=== PATIENT | male | born 1935 | race Caucasian/White ===

== ENCOUNTER → 2016-10-22 | Outpatient (CLI) | payer MEDICARE, OTHER ==
--- NOTE | 2016-10-22 17:00 | DI ---
LOCATION OF DICTATION: [facility] EXAM: CHEST, PA LATERAL HISTORY: ITS.REASON: Z01.818 PRE-OP EXAM for shoulder surgery on October 30. COMPARISON: No prior studies available for comparison. FINDINGS: Postsurgical changes of median sternotomy and CABG. The heart is mildly enlarged. Central pulmonary vasculature is within normal limits. There are no consolidating opacities or pleural effusions. There is no pneumothorax. IMPRESSION: No acute cardiopulmonary abnormality is identified. .
== END ==
LOC: IMA 16:40
PROVIDERS: ATTEND Family Medicine
DX: Z01.818 Encounter for other preprocedural examination (principal)

== ENCOUNTER 2016-10-30 05:27 | Day surgery (SDC) | payer MEDICARE, OTHER ==
[2016-10-30] VITALS (17 sets, daily range): BP systolic 129–192; BP diastolic 61–84; PULSE 58–74; RESP 11–24; TEMP 97.4–97.8; O2SAT 94–96; Ht 185.4 cm; Wt 84.9 kg
[~2016-10-30] VITALS: Ht 185.4 cm; Wt 84.9 kg
[~2016-10-30 05:27] MED LIST: ASPI-557 PO; ATOR20TA59 PO; FISH1CAP2 PO; FURO20TA4 PO; GLIM2TAB3 PO; LEVO50TA11 PO; OMEP20CA10 PO
--- OUTSIDE RECORDS SUMMARY | 2016-10-30 05:33 | XMS REPORT | Continuity of Care Document ---
Author Author [facility] Organization [facility] Address Unknown Phone Unavailable Care Team Providers Care Gerentological Physiotherapist Name Role Phone NiltonKatie cohen Primary Care Physician [phone] Source Comments Some departments are not documenting in the electronic medical record. If you do not see the information that you expected, contact Release of Information in the Health Information Management department at [phone] for further assistance in locating additional records.[facility] Active Allergies and Adverse Reactions Allergen Noted Date Severity Reactions Comments Bactrim 02/15/2014 UNKNOWN Metformin 02/15/2014 UNKNOWN Pcn 02/15/2014 UNKNOWN Current Medications Prescription Sig. Disp. Refills Start End Date Status Date ERGOCALCIFEROL (VITAMIN Take 1,000 mg by mouth Active D2) (VITAMIN D PO) daily. Fish Oil-DHA-EPA Take by mouth daily. Active 1,200-144-216 mg cap aspirin EC 81 mg tablet Take 81 mg by mouth Active daily. PANTOPRAZOLE SODIUM Take by mouth daily. Active (PROTONIX PO) atorvastatin (LIPITOR) 10 Take 10 mg by mouth Active mg tablet daily. glimepiride (AMARYL) 4 mg Take 4 mg by mouth daily Active tablet with breakfast. gabapentin (NEURONTIN) Take 300 mg by mouth Active 300 mg capsule twice daily. metoprolol XL (TOPROL XL) Take 25 mg by mouth Active 25 mg tablet daily. furosemide (LASIX) 20 mg Take 20 mg by mouth Active tablet daily. other medication Take 1 Dose by mouth Active daily. 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) 05/16/2014 Secondary malignant neoplasm of liver 05/16/2014 Social History Tobacco Use Types Packs/Day Years Used Date Never Smoker Smokeless Tobacco: Never Used Alcohol Use Drinks/Week oz/Week Comments No 0 Standard 0.0 drinks or equivalent Last Filed Vital Signs Vital Sign Reading Time Taken Blood Pressure 163/76 05/06/2016 8:52 AM CDT Pulse 59 05/06/2016 8:52 AM CDT Temperature 36.1 C (97 F) 05/06/2016 8:52 AM CDT Respiratory Rate 18 05/06/2016 8:52 AM CDT Height 1.822 m (5' 11.75") 05/06/2016 8:52 AM CDT Weight 87.272 kg (192 lb 6.4 oz) 05/06/2016 8:52 AM CDT Body Mass Index 26.29 05/06/2016 8:52 AM CDT Oxygen Saturation 96% 05/06/2016 8:52 AM CDT Plan of Care Date Type Specialty Providers Description 11/11/2016 Appointment Oncology 11/11/2016 Appointment Oncology Cleve Banks MD [address] [place] [address] [phone] (Fax) Health Maintenance Due Date Last Done Comments Physical (Comprehensive) 1942 Exam Pertussis Vaccine 1946 Tetanus Vaccine 01/12/1952 Shingles Vaccine 1995 Prevnar/Pneumovax (#1) 01/12/2000 Influenza Vaccine 04/11/2016 Results from Last 3 Months Not on file
[2016-10-30 06:41] LABS: ANION GAP 11 MEQ/L (5-15); BUN/CREATININE RATIO 26 RATIO (6-26); CALCIUM 9.3 MG/DL (8.4-10.2); CHLORIDE 107 MEQ/L (98-107); CO2 - CARBON DIOXIDE 27 MEQ/L (22-30); CREATININE 0.7 MG/DL (0.8-1.5); GLOMERULAR FILTRATION RATE 108; GLUCOSE 148 MG/DL (75-110); POTASSIUM 4.2 MEQ/L (3.6-5); SODIUM 145 MEQ/L (134-144)
[2016-10-30] MEDS ORDERED: PROPOFOL 200mg 20 ML IV ONE ×2 (06:45→07:11)
[2016-10-30] MEDS ORDERED: ROCURONIUM 50mg/5ml INJECTION IV ONE ×2 (06:45→07:11)
[2016-10-30] MEDS ORDERED: ROPIVACAINE 0.5% (5mg/ml) 30ml INJ ONE ×2 (06:48→07:11)
[2016-10-30] MEDS ORDERED: EPINEPHRINE 1mg/ml TOPICAL SOLN 30ml ONE (06:49)
--- NOTE | 2016-10-30 06:51 | ANESPREOP ---
Anesthesia Record Date and Time DATE: 10/30/16 TIME: 06:45 Pre-Op Diagnosis Rt shoulder pain, rotator cuff tear Proposed Surgical Procedure R. SHOULDER ARTHROSCOPY NPO since: > [place] Allergies: Coded Allergies: Penicillins (Verified Allergy, Unknown, 10/30/16) sulfamethoxazole (Verified Adverse Reaction, Severe, LIVER FAILURE, ) trimethoprim (Verified Adverse Reaction, Severe, LIVER FAILURE, 10/30/16) Ht/Wt/BMI Height: 6 ' 1.00 " Weight: 84.900 kg BMI: 24.7 kg/m2 Vital Signs Date Time Temp Pulse Resp B/P Pulse Ox O2 Delivery O2 Flow Rate FiO2 10/30/16 06:15 170/75 10/30/16 05:45 97.8 59 16 96 Room Air Medications Inpatient Medications Current Medications Medications (Trade) Dose Ordered Sig/Pricila Start Time Stop Time Status Last Admin Dose Admin Lactated Ringer's (Lactated Ringers) 1,000 ml @ 50 mls/hr Q20H 10/30/16 07:00 10/30/16 06:18 50 MLS/HR Aspirin (Aspir 81) 81 Mg Tablet.dr, 1 TAB PO DAILY, (Reported) Last Taken: on 10/22/16 Atorvastatin Calcium (Atorvastatin Calcium) 20 Mg Tablet, 1 TAB PO HS, (Reported) Last Taken: on 10/29/16 0800 Furosemide (Furosemide) 20 Mg Tablet, 1 TAB PO DAILY, (Reported) Last Taken: on 10/29/16 0800 Glimepiride (Glimepiride) 2 Mg Tablet, 1 TAB PO BID, (Reported) Last Taken: on 10/29/16 0800 Levothyroxine Sodium (Levothyroxine Sodium) 50 Mcg Tablet, 50 MCG PO ACB, (Reported) Once daily before breakfast. 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 smoked today?: No Substance Use Type: does not use Alcohol Intake: none Past Surgical History Orthopedic Surgeries: Abdominal Surgeries: Yes - GALLBLADDER Genitourinary Surgeries: Cardiac Surgeries: Yes - BIPASS,STENT 2010 Endocrine Surgeries: Reproductive Surgeries: Neurological Surgeries: Ear Surgeries: Nose Surgeries: Throat Surgeries: Other Surgeries: Yes - C SCOPE Anesthesia Adverse Reactions: FOUND none Family Hx of Anesthesia Advers: none Pertinent Findings Laboratory Tests 10/30/16 06:19 Physical Exam Respiratory: Lungs clear Cardiovascular: FOUND Regular rate, rhythm, FOUND No murmur Airway Assessment Mallampati Score: III TMD: 3 Fingerbreadths Neck Extension: Good Teeth: Chipped Teeth/Crowns Overall Assessment: May Be Diff Intubation ASA: 3 Plan Anesthesia Plan: GETA Peripheral Nerve Block: Interscalene Block - RT Discussion Discussed risks/options/alternatives of anesthesia and questions answered. Patient consents. Nursing pain assessment noted. Present: Spouse Attestation Statement Prior to the delivery of any anesthetic medication, I examined the patient, developed the plan, obtained the patient's consent and discussed the risk and benefits of the procedure with the patient/guardian. FRANCY PIMENTEL BONDING MACHINE OPERATOR STUDENT Oct 30, 2016 06:48
[2016-10-30] MEDS ORDERED: LR 1,000 ML IV SCH (07:00)
[2016-10-30] MEDS ORDERED: MIDAZOLAM 2mg/2ml INJECTION IV ONE (07:00)
[2016-10-30] MEDS ORDERED: LIDOCAINE 1% (10mg/ml) 2ml SDV INJ ONE (07:00)
[2016-10-30] MEDS ORDERED: EPHEDRINE SULFATE 50mg/ml INJECTION ONE (07:11)
[2016-10-30] MEDS ORDERED: PHENYLEPHRINE 10mg/ml INJECTION ONE (07:11)
[2016-10-30] MEDS ORDERED: FENTANYL 250mcg/5ml INJECTION ONE (07:12)
[2016-10-30] MEDS ORDERED: SALINE FLUSH 10ml SYRINGE ONE (07:14)
[2016-10-30] MEDS ORDERED: CLINDAMYCIN 600mg IVPB 50 ML IV ONE (08:00)
--- NOTE | 2016-10-30 08:26 | ANESPD ---
Peripheral Nerve Blockade Physician: Ghanshyam Jaimes MD Date: 10/30/16 Surgical Procedure: right shoulder arthroscopy Discussion Discussed risks/options/alternatives of anesthesia and questions answered. Patient consents. Nursing pain assessment noted. Block Start: 06:57 Block Stop: 07:07 Block Employed: Intrascal[employer] Indication: post-operative pain Approach: right side confirmed Position: supine Patient: Consent, risks/benefits discussed, Informed, post block act. discussed Monitors: EKG, SpO2, NIBP IV Sedation: Yes Sedation: sedate w/meaningful contact Midazolam (mg): 2 Initial Vital Signs First Documented Vital Signs Date Time Temp Pulse Resp B/P Pulse Ox O2 Delivery O2 Flow Rate FiO2 10/30/16 05:45 97.8 59 16 187/84 96 Room Air Post Vital Signs Vital Signs Date Time Temp Pulse Resp B/P Pulse Ox O2 Delivery O2 Flow Rate FiO2 10/30/16 07:10 58 13 145/70 95 Room Air 10/30/16 05:45 97.8 Initial Pain Score: 0 Post Block Score: 0 Prep: chlorhexadine/ETOH Ultrasound Used?: Yes Injectate Ropivacaine (%): 0.5 Ropivacaine (mL): 30 Was Epi 1:200,000 Used?: No Injection Injection made incrementally with constant monitoring and aspiration every [5] ml. AVE PIMENTEL CRNA Oct 30, 2016 08:26
[2016-10-30] MEDS ORDERED: HYDROMORPHONE 2mg/ml INJECTION IV PRN (08:30)
[2016-10-30] MEDS ORDERED: ONDANSETRON 4mg/2ml INJECTION IV PRN (08:30)
[2016-10-30] MEDS ORDERED: SUGAMMADEX 200 MG/2 ML INJECTION IV ONE (09:06)
[2016-10-30] MEDS ORDERED: OXYC1TAB8 PO (09:22)
[2016-10-30] MEDS ORDERED: ONDA4TAB4 PO (09:22)
--- NOTE | 2016-10-30 09:28 | PDPROCED ---
Immediate Operative Note DATE: 10/30/16 TIME: 09:23 Preop Diagnosis: RIGHT SHOULDER TRAUMATIC RCT, AC DJD, impingement Postop Diagnosis: Right shoulder traumatic RCT, AC DJD, impingement, degenerative labral tear Surgical Procedures: R Arthroscopic RCR (SAD, DCE, labral debridement) Surgeon: Theodore Panel Coverer: LOLY Weston Anesthesia: General (plus regional block) Complications: none Estimated Blood Loss see anesthesia TACO GOOD Oct 30, 2016 09:27
--- NOTE | 2016-10-30 10:18 | ANESPO ---
Post-Op Note Date 10/30/16 Time: 10:17 Status Pt Participated in Evaluation: Pt participated in person Vital Signs Date Time Temp Pulse Resp B/P Pulse Ox O2 Delivery O2 Flow Rate FiO2 10/30/16 09:56 97.6 66 24 140/67 96 Room Air 10/30/16 09:35 6.00 Respiratory Function: Airway patent Cardiovascular Function: Regular pulse Telemetry Pattern: SR Mental Status: Alert/oriented Pain Level Intensity: 0 Hydration: Taking po fluids Complications during Recovery None apparent Follow-Up Instructions Instructions Per Surgeon SHONDA FUNEZ MEDICAL RECEPTIONIST Oct 30, 2016 10:18
--- NOTE | 2016-10-30 14:22 | OPNOTEF ---
DATE OF PROCEDURE 10/30/2016 PREOPERATIVE DIAGNOSES 1. Right shoulder rotator cuff tear. 2. Right shoulder AC joint osteoarthritis. 3. Right shoulder rotator cuff impingement with large subacromial spur. POSTOPERATIVE DIAGNOSES 1. Right shoulder rotator cuff tear. 2. Right shoulder AC joint osteoarthritis. 3. Right shoulder rotator cuff impingement with large subacromial spur. PROCEDURE 1. Right shoulder arthroscopic rotator cuff repair. 2. Right shoulder arthroscopic distal clavicle excision. 3. Right shoulder arthroscopic subacromial decompression. SURGEON Ghanshyam Jaimes MD LOW EMISSION AUTOMOBILE DESIGNER Cleve Cano PA-C ANESTHESIA General with regional block. FLUIDS Please refer to Anesthesia chart. EBL Minimal. TOURNIQUET None used. COMPLICATIONS None. CONDITION Stable to recovery room. IMPLANTS [employer] 5.0 mm TWINFIX anchor x 2. DESCRIPTION OF PROCEDURE The patient was identified in the preoperative holding area. The operative extremity was identified and appropriately marked. Risks, benefits, alternatives and potential complications were discussed and informed consent was obtained. The patient was taken to the operating theatre, placed supine on the operating table. Appropriate cardiorespiratory monitors were applied. General anesthesia was induced. A block had been placed in preoperative holding. The patient was positioned in a seated beach chair position with all bony prominences well padded. Head and neck were secured in a safe position. Right upper extremity was sterilely prepped and draped in the usual fashion. Surgical time-out was performed, confirmed with myself, the generator operator straight bevel gear and circulating nurse. Preoperative antibiotics were given. Examination under anesthesia revealed full passive range of motion of the right shoulder. No instability. Standard posterior arthroscopic portal was established. The arthroscope was inserted and the glenohumeral joint was insufflated with saline. Needle localization was utilized to establish an anterior portal in the rotator interval and diagnostic examination ensued. Glenohumeral articular cartilage was fairly well maintained. Only minimal degenerative change present. Anterior, inferior and posterior erich were intact. There was mild fraying of the superior labrum which was gently debrided with a suction shaver. Long head biceps tendon anchor was intact. Biceps tendon was intact in its intraarticular and extraarticular portions. The subscapularis tendon was intact. There was a full-thickness tear of the supraspinatus with evidence of delamination. The undersurface of the tendon was debrided with a shaver as was the medial border of the footprint. The posterior aspect of the cuff was otherwise intact. The arthroscope was then withdrawn and placed in the subacromial space. The patient had large spurring of the anterior and anterolateral aspects of the acromion. This even made it difficult to establish a lateral portal site secondary to the lateral concavity. A shaver was introduced after establishment of a lateral portal and bursectomy was performed. The patient's tissue was quite friable and bled quite easily making visualization difficult at times. We had to adjust pump pressures and outflow progressively throughout the case to maintain adequate field of view. Once an adequate bursectomy was performed, the CA ligament was notably frayed again with these large anterolateral subacromial spurs. To aid in instrumentation through the portals, a 5.5 bur was utilized to perform an acromioplasty primarily of the anterolateral aspect of the acromion to afford a better approach for instrumentation. At this point attention was turned towards evaluation of the rotator cuff. There was a complex delaminated type tear of the supraspinatus. Superior fibers were elevated and retracted. The inferior fibers were less retracted. The edges of the tendon were debrided, as was the footprint, to a bleeding cortical surface. We again ran into bleeding just from simple cortical debridement for the footprint. A grasper was inserted and reduction of the tendon was performed, noting that we had good overall mobility. Given the orientation and complexity of the tear, we elected to proceed with a lateral row type repair. Two 5.0 mm anchors were placed along the lateral margin of the footprint. Sutures were then passed in a simple fashion and subsequently tied which helped to reduce the lateral margin of the tendon to the footprint. Suture tails were cut. Probing of the repair noted it to be a solid repair. Bone quality was felt to be good. Tissue quality was fair. At this time the 5.0 bur was reinserted and acromioplasty continued over the level of the AC joint. The AC joint was exposed with radiofrequency ablation device. The 5.5 bur was then utilized to perform a lateral clavicle resection taking off about the distal centimeter of the clavicle. Again, we ran into visibility and bleeding issues as he had continued to bleed from bone. Anesthesia was doing their best to maintain pressures. The patient did have a cardiac history, so they didn't want to drop the pressures too low. The patient had not been on any anticoagulants but had been on aspirin and it is wondered if he had continued aspirin prior to surgery. After it was felt that the lateral clavicle had been adequately debrided and resected, the shoulder was copiously lavaged, irrigated and drained. All arthroscopic instruments were removed. Portals were closed with nylon sutures. Sterile dressings were applied followed by a Polar Pack with all skin edges covered with surgical towels. The patient was awakened from anesthesia and taken to the recovery room in stable and satisfactory condition. ELSA
== END 2016-10-30 10:50 | disposition home or self-care (01) ==
LOC: NSC 05:27
PROVIDERS: ATTEND Orthopaedic Surgery
DX: S46.011A Strain of muscle(s) and tendon(s) of the rotator cuff of right shoulder, initial encounter (principal); M19.011 Primary osteoarthritis, right shoulder; M75.41 Impingement syndrome of right shoulder; E11.9 Type 2 diabetes mellitus without complications; K21.9 Gastro-esophageal reflux disease without esophagitis; I10 Essential (primary) hypertension; E78.00 Pure hypercholesterolemia, unspecified; I25.10 Atherosclerotic heart disease of native coronary artery without angina pectoris; I25.2 Old myocardial infarction; Z79.84 Long term (current) use of oral hypoglycemic drugs; Z79.82 Long term (current) use of aspirin; Z79.899 Other long term (current) drug therapy; Z88.0 Allergy status to penicillin; Z88.1 Allergy status to other antibiotic agents; Z91.041 Radiographic dye allergy status; Z95.5 Presence of coronary angioplasty implant and graft; Z87.891 Personal history of nicotine dependence; Z90.49 Acquired absence of other specified parts of digestive tract; X50.9XXA Other and unspecified overexertion or strenuous movements or postures, initial encounter
CPT/HCPCS: 29824; 29826; 29827; 36415; 76942; 80048; 82948; A9270; C1713; J0330; J2250; J2370; J2704; J2795; J3010; J7120

== ENCOUNTER → 2016-12-23 | Outpatient (CLI) | payer MEDICARE, OTHER ==
[~2016-12-23] MED LIST changes: +ONDA4TAB4 PO; +OXYC1TAB8 PO
== END ==
LOC: LAB 08:48
PROVIDERS: ATTEND Family Medicine
DX: E03.9 Hypothyroidism, unspecified (principal)
CPT/HCPCS: 36415; 84443

== ENCOUNTER → 2017-01-03 | Outpatient (CLI) | payer MEDICARE, OTHER | LOC: LAB 08:32 | PROVIDERS: ATTEND Family Medicine | DX: E11.9 Type 2 diabetes mellitus without complications (principal) | CPT/HCPCS: 36415; 82043; 83036 ==